=== PATIENT | female | born 1970 | race Caucasian/White ===

== ENCOUNTER 2017-03-20 13:38 | Observation (INO) | payer BC ==
[~2017-03-20] VITALS: Ht 165.1 cm; Wt 64.2 kg
[~2017-03-20 13:38] MED LIST: ASPI325T39 PO
[2017-03-20 13:41] VITALS: O2SAT 100
[2017-03-20] MEDS ORDERED: SODIUM CHLORIDE 0.9% 1000ML 1,000 ML IV STA (14:23)
[2017-03-20] MEDS ORDERED: PROCHLORPERAZINE 5 MG/ML 2 ML VIAL IV STA (14:23)
[2017-03-20] MEDS ORDERED: ACETAMINOPHEN 500 MG TAB PO STA (14:23)
[2017-03-20] MEDS ORDERED: DiphenhydrAMINE HCL 50 MG/ML VIAL IV STA (14:23)
[2017-03-20 14:39] LABS: BASO % 0.3 %; BASO ABS # 0.02 K/uL (0-0.2); COMPLETE YES; EOS % 0.8 %; IG% 0.2 %; LYMPH ABS # 1.54 K/uL (1.2-3.4); MEAN CELL VOLUME 92.4 fL (80-100); MEAN CORPUSCULAR HEMOGLOBIN 32.1 pg (25-34); MEAN CORPUSCULAR HGB CONC 34.8 g/dl (32-36); MEAN PLATELET VOLUME 10.5 fL (7.4-10.4); MONO % 11.7 %; PLATELET COUNT 206 K/uL (130-400); RED BLOOD COUNT 4.33 M/uL (4.2-5.4); WHITE BLOOD COUNT 6.43 K/uL (4.8-10.8)
[2017-03-20 14:46] LABS: BUN/CREATININE RATIO 10.3 (10-20); CALCIUM 9.1 mg/dl (8.5-10.1); CREATININE 0.78 mg/dl (0.60-1.20); POTASSIUM 3.7 mmol/L (3.5-5.1)
[2017-03-20 15:21] LABS: LYME DISEASE AB IGG NEG (NEG)
[2017-03-20 15:39] LABS: URINE APPEARANCE CLEAR (CLEAR); URINE BILIRUBIN NEG (NEG); URINE COLOR YELLOW; URINE NITRITE NEG (NEG); UROBILINOGEN NEG (NEG)
[2017-03-20 15:39] LABS: LYME DISEASE AB IGM EQUIVOCAL (NEG)
[2017-03-20 15:41] LABS: PROTHROMBIN TIME (PATIENT) 10.2 SECONDS (9.0-12.0)
[2017-03-20 15:45] LABS: MANUAL MICROSCOPIC REQUIRED? NO; REVIEW REQ? NO
--- NOTE | 2017-03-20 16:58 | DIAGNOSTIC IMAGING REPORT ---
ANGIOGRAPHY HEAD COMBO CLINICAL HISTORY: Blurred vision and headache status post cardiac catheterization. COMPARISON STUDY: No previous studies for comparison. TECHNIQUE: Unenhanced and arterial phase imaging of the head was performed. Injection of 116 cc Optiray 320 IV was uneventful. Sagittal and coronal reconstructions were viewed as well as maximal intensity projections on an independent 3-D workstation. FINDINGS: No acute intracranial hemorrhage, midline shift or mass effect is present. Ventricular system is normal. Fullness at the level of the foramen magnum is chronic. There are no extra-axial collections. -white differentiation is maintained. There is minimal left basal ganglia calcification. There are no findings to suggest acute dural sinus thrombosis or acute territorial infarct. There no significant calvarial abnormalities. Visualized portions of the sinuses and mastoid air cells are clear. The bilateral M1, M2, A1 and A2 segments are patent. There is no intracranial dissection. Posterior circulation is also intact. There is persistence of the left posterior cerebral artery. There is an anterior communicating artery. There is mild vascular calcification of the bilateral cavernous carotids. IMPRESSION: 1. No acute intracranial findings. 2. Unremarkable CTA of the head. Electronically signed by: Guille Garcia M.D. 03/20/2017 4:57 PM Dictated Date/Time: 03/20/2017 4:50 PM
--- NOTE | 2017-03-20 17:06 | DIAGNOSTIC IMAGING REPORT ---
CT ANGIOGRAPHY OF THE NECK WITH CONTRAST CLINICAL HISTORY: Right-sided headache and blurred vision status post PDA closure. COMPARISON STUDY: No previous studies for comparison. Technique: CT angiography of the carotid and vertebral arteries was obtained using Automile 320 IV and 3D reconstruction on an independent workstation. NASCET criteria was utilized. A dose lowering technique was utilized adhering to the principles of ALARA. Findings: The bilateral common carotid, internal carotid and vertebral arteries are patent. There is no significant stenosis. There is no dissection within these vessels. No cervical lymphadenopathy is identified. There is no hematoma within the neck. Epiglottis is normal. Parotid and submandibular glands are normal. Thyroid is unremarkable by CT. The chest will be reported separately. No suspicious skeletal lesions are identified. IMPRESSION: Unremarkable CTA of the neck. No dissection or stenosis. Electronically signed by: Guille Garcia M.D. 03/20/2017 5:05 PM Dictated Date/Time: 03/20/2017 5:01 PM
--- NOTE | 2017-03-20 17:15 | DIAGNOSTIC IMAGING REPORT ---
CHEST COMBO ANGIOGRAPHY CLINICAL HISTORY: Right-sided headache and left-sided visual disturbance status post recent PDA closure. COMPARISON STUDY: CTA of the chest July 29, 2016. TECHNIQUE: Unenhanced and arterial phase imaging of the chest was performed. Injection of 116 cc Optiray 320 IV was uneventful. Sagittal and coronal reconstructions were viewed as well as maximal intensity projections on an independent 3-D workstation. FINDINGS: The caliber of the thoracic aorta is normal. There is no evidence of intramural hematoma or dissection within the thoracic aorta. There are expected findings following PDA closure. There is no pericardial effusion. There are no enlarged thoracic lymph nodes. Central airways are patent. No consolidation is present. There is no pneumomediastinum. No pneumothorax or pleural effusion is identified. No pulmonary emboli are identified. Bony thorax and upper abdomen are unremarkable. A small segment 8 hepatic cyst is unchanged. IMPRESSION: 1. Unremarkable CTA of the chest following PDA closure. No thoracic aortic dissection. 2. No acute intrathoracic findings. Electronically signed by: Guille Garcia M.D. 03/20/2017 5:14 PM Dictated Date/Time: 03/20/2017 5:06 PM
[2017-03-20] MEDS ORDERED: ASPIRIN 81 MG CHEW PO STA (17:30)
--- NOTE | 2017-03-20 17:36 | EMERGENCY ROOM VISIT NOTE ---
History Report prepared by Ludwin: Adelina Joyner Under the Supervision of: Dr. Baljeet Tobar M.D. First contact with patient: 14:03 Chief Complaint: NEURO SYMPTOMS Stated Complaint: S/P CARDIAC CATH, BLURRY VISION, WEAK, TIRED Nursing Triage Summary: Pt reports visual changes that lasted approx 20 min this AM. Pt reports visual changes have resolved. Now just feels "cloudy in my head". Pt recently underwent cardiac cath with PAD closure. Pt also reports R sided headache. Pt reports headache was initially above R eye and has now moved to the back of R head. Pt reports she had similar symptoms (without headache) last evening that lasted approx 5 min. History of Present Illness The patient is a 46 year old white female with a past medical history of cardiac catheterization, PDA closure who presents to the ED with a cc of intermittent vision changes beginning 1929 last night. Positive headache, fatigue. Negative urinary symptoms, numbness, tingling, weakness, neck pain, SOB , cough, congestion. No recent falls. No blood thinners. No tobacco, drug use. Source of History: patient Onset: 1929 last night Position: other (global) Quality: other (blurry vision) Timing: intermittent Associated Symptoms: + headache, + fatigue, No cough, No neck pain, No chest pain, No SOB, No urinary symptoms, No weakness, No numbness Note: Pt denies tingling, congestion. Review of Systems See HPI for pertinent positives and negatives. A total of ten systems were reviewed and were otherwise negative. Past Medical & Surgical Medical Problems: (1) MTHFR mutation (2) No Known Active Medical Problems Family History No pertinent family history stated. Social History Smoking Status: Never Smoker Marital Status: Housing Status: lives with family Occupation Status: unemployed Current/Historical Medications No Active Prescriptions or Reported Meds Allergies Coded Allergies: Neomycin (Unverified Allergy, Severe, RED RASH, 03/20/17) Penicillins (Unverified Allergy, Severe, CHILDHOOD, 03/20/17) Amoxicillin (Unverified Allergy, Unknown, CHILD REACTION, 07/29/16) Doxycycline (Unverified Allergy, Unknown, HIVES, 07/29/16) Physical Exam Vital Signs Date Time Temp Pulse Resp B/P (MAP) Pulse Ox O2 Delivery O2 Flow Rate FiO2 03/20/17 18:01 61 03/20/17 17:33 58 15 03/20/17 17:32 110/61 03/20/17 16:03 52 14 03/20/17 15:58 101/61 03/20/17 15:53 54 13 03/20/17 15:38 51 14 03/20/17 15:23 59 14 03/20/17 15:13 61 20 109/76 03/20/17 15:12 109/76 03/20/17 14:38 64 17 03/20/17 14:30 100 Room Air 03/20/17 14:23 67 18 03/20/17 14:13 74 03/20/17 13:41 36.7 78 18 136/68 100 Room Air Physical Exam GENERAL: Tearful, anxious, awake, alert, well-appearing, NAD HENT: Normocephalic, atraumatic. EYES: Normal conjunctiva. Sclera non-icteric. EOM intact, PERRL, no visual field deficit, 20/20 on the left, 20/10 on the right. NECK: Supple. No nuchal rigidity. FROM. RESPIRATORY: CTAB, no rhonchi, wheezing, crackles CARDIAC: RRR, no MRG ABDOMEN: Soft, NTND, BS+ MSK: No chest wall TTP, no LE edema, no calf pain NEURO: GCS 15, CN 2-12 intact, moves all 4s on command, good finger to nose, no pronator drift, 5/5 upper and lower extremity strength, however RLE limited 4/5 secondary to recent procedure. SKIN: No rash or jaundice noted. Medical Decision & Procedures ER Provider Diagnostic Interpretation: Radiology results as stated below per my review and radiologist interpretation: ANGIOGRAPHY HEAD COMBO CLINICAL HISTORY: Blurred vision and headache status post cardiac catheterization. COMPARISON STUDY: No previous studies for comparison. TECHNIQUE: Unenhanced and arterial phase imaging of the head was performed. Injection of 116 cc Optiray 320 IV was uneventful. Sagittal and coronal reconstructions were viewed as well as maximal intensity projections on an independent 3-D workstation. FINDINGS: No acute intracranial hemorrhage, midline shift or mass effect is present. Ventricular system is normal. Fullness at the level of the foramen magnum is chronic. There are no extra-axial collections. -white differentiation is maintained. There is minimal left basal ganglia calcification. There are no findings to suggest acute dural sinus thrombosis or acute territorial infarct. There no significant calvarial abnormalities. Visualized portions of the sinuses and mastoid air cells are clear. The bilateral M1, M2, A1 and A2 segments are patent. There is no intracranial dissection. Posterior circulation is also intact. There is persistence of the left posterior cerebral artery. There is an anterior communicating artery. There is mild vascular calcification of the bilateral cavernous carotids. IMPRESSION: 1. No acute intracranial findings. 2. Unremarkable CTA of the head. Electronically signed by: Guille Garcia M.D. 03/20/2017 4:57 PM Dictated Date/Time: 03/20/2017 4:[address] ANGIOGRAPHY OF THE NECK WITH CONTRAST CLINICAL HISTORY: Right-sided headache and blurred vision status post PDA closure. COMPARISON STUDY: No previous studies for comparison. Technique: CT angiography of the carotid and vertebral arteries was obtained using Optiray 320 IV and 3D reconstruction on an independent workstation. NASCET criteria was utilized. A dose lowering technique was utilized adhering to the principles of ALARA. Findings: The bilateral common carotid, internal carotid and vertebral arteries are patent. There is no significant stenosis. There is no dissection within these vessels. No cervical lymphadenopathy is identified. There is no hematoma within the neck. Epiglottis is normal. Parotid and submandibular glands are normal. Thyroid is unremarkable by CT. The chest will be reported separately. No suspicious skeletal lesions are identified. IMPRESSION: Unremarkable CTA of the neck. No dissection or stenosis. Electronically signed by: Guille Garcia M.D. 03/20/2017 5:05 PM Dictated Date/Time: 03/20/2017 5:01 PM CHEST COMBO ANGIOGRAPHY CLINICAL HISTORY: Right-sided headache and left-sided visual disturbance status post recent PDA closure. COMPARISON STUDY: CTA of the chest July 29, 2016. TECHNIQUE: Unenhanced and arterial phase imaging of the chest was performed. Injection of 116 cc Optiray 320 IV was uneventful. Sagittal and coronal reconstructions were viewed as well as maximal intensity projections on an independent 3-D workstation. FINDINGS: The caliber of the thoracic aorta is normal. There is no evidence of intramural hematoma or dissection within the thoracic aorta. There are expected findings following PDA closure. There is no pericardial effusion. There are no enlarged thoracic lymph nodes. Central airways are patent. No consolidation is present. There is no pneumomediastinum. No pneumothorax or pleural effusion is identified. No pulmonary emboli are identified. Bony thorax and upper abdomen are unremarkable. A small segment 8 hepatic cyst is unchanged. IMPRESSION: 1. Unremarkable CTA of the chest following PDA closure. No thoracic aortic dissection. 2. No acute intrathoracic findings. Electronically signed by: Guille Garcia M.D. 03/20/2017 5:14 PM Dictated Date/Time: 03/20/2017 5:06 PM Laboratory Results 03/20/17 14:13 Red Blood Count 4.33, Mean Corpuscular Volume 92.4, Mean Corpuscular Hemoglobin 32.1, Mean Corpuscular Hemoglobin Concent 34.8, Mean Platelet Volume 10.5, Neutrophils (%) (Auto) 63.0, Lymphocytes (%) (Auto) 24.0, Monocytes (%) (Auto) 11.7, Eosinophils (%) (Auto) 0.8, Basophils (%) (Auto) 0.3, Neutrophils # (Auto ) 4.06, Lymphocytes # (Auto) 1.54, Monocytes # (Auto) 0.75, Eosinophils # (Auto ) 0.05, Basophils # (Auto) 0.02 03/20/17 14:13 Test 03/20/17 14:13 03/20/17 14:54 03/20/17 15:04 White Blood Count 6.43 K/uL (4.8-10.8) Red Blood Count 4.33 M/uL (4.2-5.4) Hemoglobin 13.9 g/dL (12.0-16.0) Hematocrit 40.0 % (37-47) Mean Corpuscular Volume 92.4 fL (80-100) Mean Corpuscular Hemoglobin 32.1 pg (25-34) Mean Corpuscular Hemoglobin Concent 34.8 g/dl (32-36) Platelet Count 206 K/uL (130-400) Mean Platelet Volume 10.5 fL (7.4-10.4) Neutrophils (%) (Auto) 63.0 % Lymphocytes (%) (Auto) 24.0 % Monocytes (%) (Auto) 11.7 % Eosinophils (%) (Auto) 0.8 % Basophils (%) (Auto) 0.3 % Neutrophils # (Auto) 4.06 K/uL (1.4-6.5) Lymphocytes # (Auto) 1.54 K/uL (1.2-3.4) Monocytes # (Auto) 0.75 K/uL (0.11-0.59) Eosinophils # (Auto) 0.05 K/uL (0-0.5) Basophils # (Auto) 0.02 K/uL (0-0.2) RDW Standard Deviation 43.9 fL (36.4-46.3) RDW Coefficient of Variation 12.8 % (11.5-14.5) Immature Granulocyte % (Auto) 0.2 % Immature Granulocyte # (Auto) 0.01 K/uL (0.00-0.02) Anion Gap 6.0 mmol/L (3-11) Est Creatinine Clear Calc Drug Dose 85.2 ml/min Estimated GFR () 106.4 Estimated GFR (Non- 91.8 BUN/Creatinine Ratio 10.3 (10-20) Calcium Level 9.1 mg/dl (8.5-10.1) Lyme Disease IgG Antibody NEG (NEG) Urine Color YELLOW Urine Appearance CLEAR (CLEAR) Urine pH 7.0 (4.5-7.5) Urine Specific [place] 1.010 (1.000-1.030) Urine Protein NEG (NEG) Urine Glucose (UA) NEG (NEG) Urine Ketones NEG (NEG) Urine Occult Blood NEG (NEG) Urine Nitrite NEG (NEG) Urine Bilirubin NEG (NEG) Urine Urobilinogen NEG (NEG) Urine Leukocyte Esterase NEG (NEG) Urine Test NEG (NEG) Prothrombin Time 10.2 SECONDS (9.0-12.0) Prothromb Time International Ratio 1.0 (0.9-1.1) Activated Partial Thromboplast Time 25.8 SECONDS (21.0-31.0) Partial Thromboplastin Ratio 1.0 Laboratory results reviewed by me Medications Administered Medications (Trade) Dose Ordered Sig/José Route Start Time Stop Time Status Last Admin Dose Admin Prochlorperazine Edisylate (Compazine Inj) 10 mg NOW STAT IV 03/20/17 14:23 03/20/17 14:28 DC 03/20/17 15:11 10 MG Sodium Chloride 1,000 ml @ 999 mls/hr Q1H1M STAT IV 03/20/17 14:23 03/20/17 15:23 DC 03/20/17 15:11 999 MLS/HR Acetaminophen (Tylenol Tab) 1,000 mg NOW STAT PO 03/20/17 14:23 03/20/17 14:28 DC 03/20/17 15:11 1,000 MG Diphenhydramine HCl (Benadryl Inj) 25 mg NOW STAT IV 03/20/17 14:23 03/20/17 14:28 DC 03/20/17 15:11 25 MG Aspirin (Aspirin Chew) 324 mg NOW STAT PO 03/20/17 17:30 03/20/17 17:31 DC 03/20/17 17:40 324 MG ECG Indication: other (neuro symptoms) Rate (beats per minute): 62 Rhythm: normal sinus Findings: other (normal ME, QRS, QTc intervals, no STS changes or TWI, mild T wave flattening isolated lead 3) ED Course 1409: The patient was evaluated in room C3. A complete history and physical exam was performed. 1428: Paged for the multi site leasing consultant technology strategist at [facility]. Pt refusing imaging until cleared by cardiology. 1446: I discussed the patient's case with Dr. Roldan, [facility]. She informed me that it is acceptable for the patient to have CT scans. 1700: I reevaluated the patient. Her headache has resolved and she has had no recurrence of symptoms. I discussed the lyme test results. 1721: Upon reexamination, the patient was resting comfortably. I discussed the test results and treatment plan with her. The patient will be evaluated for further management. 1724: I discussed the patient's case with Dr. Roque, [facility]. The patient will be evaluated for further treatment and disposition. Medical Decision The patient is a 46 year old white female with a past medical history of cardiac catheterization, PDA closure who presents to the ED with a cc of intermittent vision changes beginning 1930 last night. Triage Nursing notes reviewed. The patient's presentation and history were concerning for thrombotic event, complex migraine, anxiety, arrhythmia, coagulopathy. Patient was evaluated and workup started. Patient in EKG was normal sinus rhythm or atrial fibrillation or other arrhythmia noted. Patient's coags were normal. Patient was given fluids as well as medications. Patient's headache resolved and did not have any recurrence of her vision symptoms. 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 Patient did have CT A's of the head and neck and chest which were negative acute for any sort of dissection or clot that was able to be found. I spoke with the hospitalist who agreed that she would benefit from further management and a brief observation period. Patient was given full dose aspirin and accepted by the hospitalist service. Medication Reconcilliation Current Medication List: was personally reviewed by me Blood Pressure Screening Patient's blood pressure: Normal blood pressure Blood pressure disposition: Did not require urgent referral Consults Time Called: 1428 Consulting Physician: Dr. Roldan, [facility] Returned Call: [phone] I discussed the patient's case with her. She informed me that it is acceptable for the patient to have a CT scan. Additional Consults: Time Called: 1720 Consulted Physician: Dr. Roque [facility] hospitalist Returned Call: [phone] Additional Comments: Discussed the patient's case. The patient will be evaluated for further treatment and disposition. Impression Primary Impression: TIA (transient ischemic attack) Additional Impression: Headache Scribe Attestation The scribe's documentation has been prepared under my direction and personally reviewed by me in its entirety. I confirm that the note above accurately reflects all work, treatment, procedures, and medical decision making performed by me. Departure Information Dispostion Being Evaluated By Hospitalist Prescriptions No Active Prescriptions or Reported Meds Referrals Krystal Daugherty D.OJuan (PCP) Patient Instructions My [facility] Problem Qualifiers Primary Impression: TIA (transient ischemic attack) Transient cerebral ischemia type: unspecified Qualified Codes: G45.9 - Transient cerebral ischemic attack, unspecified Additional Impression: Headache Headache type: unspecified Headache chronicity pattern: acute headache Intractability: not intractable Qualified Codes: R51 - Headache
[2017-03-20] MEDS ORDERED: ACETAMINOPHEN 325 MG TAB PO PRN (18:30)
[2017-03-20] MEDS ORDERED: IV FLUIDS COMPLETED PRN (18:30)
[2017-03-20] MEDS ORDERED: ONDANSETRON INJ 2 MG/ML 2 ML VIAL IV PRN (18:30)
[2017-03-20] MEDS ORDERED: PHARMACIST DISCHARGE MED REC CONSULT PRN (18:30)
[2017-03-20 19:10] VITALS: BP 96/62; PULSE 63; TEMP 36.6; Ht 165.1 cm; Wt 64.2 kg
[2017-03-20] MEDS ORDERED: ATORVASTATIN 40 MG TAB PO ONE (19:30)
[2017-03-20] MEDS ORDERED: ENOXAPARIN 40 MG/0.4 ML SYR SC SCH (22:00)
--- NOTE | 2017-03-20 22:31 | History and Physical ---
History & Physical Date & Time of Service: Mar 20, 2017 at 18:33 Chief Complaint: S/P Cardiac Cath, Blurry Vision, Weak, Tired Primary Care Physician: Krystal Daugherty D.O. History of Present Illness Source: patient, spouse, clinic records, hospital records 46 yo F with TIA symptoms presents to the ER. Two days ago she underwent placement of a PDA closure device at [facility]. Since then she has experienced two episodes of visual changes in her L eye described as lightning bolts from L to R across her eye with subsequent headache following these episodes that occurred 24 hours apart. She then described a period of brief confusion today as her mother was handing her sneakers and she had to stop and figure out what she was doing. She couldn't put it together. She otherwise denies any difficulty ambulating, swallowing, articulating her words (except for that brief time). She denies any unilateral weakness but does describe some generalized weakness. She denies any numbness or tingling. Her headache was unilateral on the R frontal area and then moved posteriorly. It was relieved with medications in the ER. She is a non-smoker with no h/o CAD, stroke or other medical problems. 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 Of note, she was treated with Lovenox through her pregnancies which were successful. She denies any chest pain, shortness of breath, reports her chronic EUBANKS still present so far ( walking upstairs is a problem), current GARCIA or visual changes, lightheadedness, recent infections or cold symptoms, n/v, d/c or blood per rectum. She does have some bruising on her R upper thigh from the cardiac catheterization which is extensive but appears to be healing. Past Medical/Surgical History Medical Problems: (1) MTHFR mutation Family History FH: CAD (coronary artery disease) FATHER Mitral valve prolapse MOTHER Social History Smoking Status: Never Smoker Smokeless Tobacco Use: No Alcohol Use: none Drug Use: none Marital Status: Housing status: lives with family Occupational Status: unemployed Immunizations History of Influenza Vaccine: Yes Influenza Vaccine Date: May 25, 2016 History of Tetanus Vaccine?: Yes Tetanus Immunization Date: Aug 09, 2008 History of Pneumococcal: No History of Hepatitis B Vaccine: No Multi-Drug Resistant Organisms History of MDRO: No Allergies Coded Allergies: Neomycin (Unverified Allergy, Severe, RED RASH, 03/20/17) Penicillins (Unverified Allergy, Severe, CHILDHOOD, 03/20/17) Amoxicillin (Unverified Allergy, Unknown, CHILD REACTION, 07/29/16) Doxycycline (Unverified Allergy, Unknown, HIVES, 07/29/16) Home Medications No Active Prescriptions or Reported Meds Review of Systems At least ten systems reviewed and negative except as indicated in HPI. Physical Exam Vital Signs Date Time Temp Pulse Resp B/P (MAP) Pulse Ox O2 Delivery O2 Flow Rate FiO2 03/20/17 18:01 61 03/20/17 17:33 58 15 03/20/17 17:32 110/61 03/20/17 16:03 52 14 03/20/17 15:58 101/61 03/20/17 15:53 54 13 03/20/17 15:38 51 14 03/20/17 15:23 59 14 03/20/17 15:13 61 20 109/76 03/20/17 15:12 109/76 03/20/17 14:38 64 17 03/20/17 14:30 100 Room Air 03/20/17 14:23 67 18 03/20/17 14:13 74 03/20/17 13:41 36.7 78 18 136/68 100 Room Air GEN: WNWD, in no acute distress, alert and appropriate HEENT: NC/AT, PERRL, normal sclerae, MMM, pharynx non-acute, no LAD CARDIO: reg rate, S1/2 heard without m/g/r, no murmur with hand kitchen porter, no edema, 2+ peripheral pulses throughout, no JVD LUNGS: CTA bilaterally, no crackles, rales or wheezes, good diaphragmatic excursion ABD: soft, non-tender, non-distended, no rebound or guarding EXTREMITY: RP and DP palpable 2+ bilat, no LE swelling or edema, extremities are warm and well-perfused, R upper thigh with ecchymosis NEURO: CN 2-12 intact, sensation intact throughout, coordination intact (finger to nose, Evette, Romberg neg, tandem Romberg neg, heel to link neg) (reflexes) BR 2+ bilat, knee 2+ bilat MUSC: 5/5 strength throughout, no focal deficits SKIN: warm and dry and ecchymosis as noted above. Diagnostics Laboratory Results 03/20/17 14:13 Red Blood Count 4.33, Mean Corpuscular Volume 92.4, Mean Corpuscular Hemoglobin 32.1, Mean Corpuscular Hemoglobin Concent 34.8, Mean Platelet Volume 10.5, Neutrophils (%) (Auto) 63.0, Lymphocytes (%) (Auto) 24.0, Monocytes (%) (Auto) 11.7, Eosinophils (%) (Auto) 0.8, Basophils (%) (Auto) 0.3, Neutrophils # (Auto ) 4.06, Lymphocytes # (Auto) 1.54, Monocytes # (Auto) 0.75, Eosinophils # (Auto ) 0.05, Basophils # (Auto) 0.02 03/20/17 14:13 Test 03/20/17 14:13 03/20/17 14:54 03/20/17 15:04 03/20/17 19:30 White Blood Count 6.43 K/uL (4.8-10.8) Red Blood Count 4.33 M/uL (4.2-5.4) Hemoglobin 13.9 g/dL (12.0-16.0) Hematocrit 40.0 % (37-47) Mean Corpuscular Volume 92.4 fL (80-100) Mean Corpuscular Hemoglobin 32.1 pg (25-34) Mean Corpuscular Hemoglobin Concent 34.8 g/dl (32-36) Platelet Count 206 K/uL (130-400) Mean Platelet Volume 10.5 fL (7.4-10.4) Neutrophils (%) (Auto) 63.0 % Lymphocytes (%) (Auto) 24.0 % Monocytes (%) (Auto) 11.7 % Eosinophils (%) (Auto) 0.8 % Basophils (%) (Auto) 0.3 % Neutrophils # (Auto) 4.06 K/uL (1.4-6.5) Lymphocytes # (Auto) 1.54 K/uL (1.2-3.4) Monocytes # (Auto) 0.75 K/uL (0.11-0.59) Eosinophils # (Auto) 0.05 K/uL (0-0.5) Basophils # (Auto) 0.02 K/uL (0-0.2) RDW Standard Deviation 43.9 fL (36.4-46.3) RDW Coefficient of Variation 12.8 % (11.5-14.5) Immature Granulocyte % (Auto) 0.2 % Immature Granulocyte # (Auto) 0.01 K/uL (0.00-0.02) Anion Gap 6.0 mmol/L (3-11) Est Creatinine Clear Calc Drug Dose 85.2 ml/min Estimated GFR () 106.4 Estimated GFR (Non- 91.8 BUN/Creatinine Ratio 10.3 (10-20) Calcium Level 9.1 mg/dl (8.5-10.1) Lyme Disease IgG Antibody NEG (NEG) Urine Color YELLOW Urine Appearance CLEAR (CLEAR) Urine pH 7.0 (4.5-7.5) Urine Specific Elwin 1.010 (1.000-1.030) Urine Protein NEG (NEG) Urine Glucose (UA) NEG (NEG) Urine Ketones NEG (NEG) Urine Occult Blood NEG (NEG) Urine Nitrite NEG (NEG) Urine Bilirubin NEG (NEG) Urine Urobilinogen NEG (NEG) Urine Leukocyte Esterase NEG (NEG) Urine Test NEG (NEG) Prothrombin Time 10.2 SECONDS (9.0-12.0) Prothromb Time International Ratio 1.0 (0.9-1.1) Activated Partial Thromboplast Time 25.8 SECONDS (21.0-31.0) Partial Thromboplastin Ratio 1.0 Total Creatine Kinase 45 U/L (26-192) Creatine Kinase MB < 0.5 ng/ml (0.5-3.6) Creatine Kinase MB Ratio (0-3.0) Troponin I < 0.015 ng/ml (0-0.045) Results Past 24 Hours Test 03/20/17 14:13 03/20/17 14:54 03/20/17 15:04 03/20/17 18:22 Range/Units White Blood Count 6.43 4.8-10.8 K/uL Red Blood Count 4.33 4.2-5.4 M/uL Hemoglobin 13.9 12.0-16.0 g/dL Hematocrit 40.0 37-47 % Mean Corpuscular Volume 92.4 80-100 fL Mean Corpuscular Hemoglobin 32.1 25-34 pg Mean Corpuscular Hemoglobin Concent 34.8 32-36 g/dl Platelet Count 206 130-400 K/uL Mean Platelet Volume 10.5 7.4-10.4 fL Neutrophils (%) (Auto) 63.0 % Lymphocytes (%) (Auto) 24.0 % Monocytes (%) (Auto) 11.7 % Eosinophils (%) (Auto) 0.8 % Basophils (%) (Auto) 0.3 % Neutrophils # (Auto) 4.06 1.4-6.5 K/uL Lymphocytes # (Auto) 1.54 1.2-3.4 K/uL Monocytes # (Auto) 0.75 0.11-0.59 K/uL Eosinophils # (Auto) 0.05 0-0.5 K/uL Basophils # (Auto) 0.02 0-0.2 K/uL RDW Standard Deviation 43.9 36.4-46.3 fL RDW Coefficient of Variation 12.8 11.5-14.5 % Immature Granulocyte % (Auto) 0.2 % Immature Granulocyte # (Auto) 0.01 0.00-0.02 K/uL Sodium Level 140 136-145 mmol/L Potassium Level 3.7 3.5-5.1 mmol/L Chloride Level 107 98-107 mmol/L Carbon Dioxide Level 27 21-32 mmol/L Anion Gap 6.0 3-11 mmol/L Blood Urea Nitrogen 8 7-18 mg/dl Creatinine 0.78 0.60-1.20 mg/dl Est Creatinine Clear Calc Drug Dose 85.2 ml/min Estimated GFR () 106.4 Estimated GFR (Non- 91.8 BUN/Creatinine Ratio 10.3 10-20 Random Glucose 111 70-99 mg/dl Calcium Level 9.1 8.5-10.1 mg/dl Lyme Disease IgG Antibody NEG NEG Lyme Disease IgM Antibody EQUIVOCAL NEG Urine Color YELLOW Urine Appearance CLEAR CLEAR Urine pH 7.0 4.5-7.5 Urine Specific Elwin 1.010 1.000-1.030 Urine Protein NEG NEG Urine Glucose (UA) NEG NEG Urine Ketones NEG NEG Urine Occult Blood NEG NEG Urine Nitrite NEG NEG Urine Bilirubin NEG NEG Urine Urobilinogen NEG NEG Urine Leukocyte Esterase NEG NEG Urine Test NEG NEG Prothrombin Time 10.2 9.0-12.0 SECONDS Prothromb Time International Ratio 1.0 0.9-1.1 Activated Partial Thromboplast Time 25.8 21.0-31.0 SECONDS Partial Thromboplastin Ratio 1.0 Creatine Kinase MB Ratio 0-3.[address] ANGIOGRAPHY OF THE NECK WITH CONTRAST CLINICAL HISTORY: Right-sided headache and blurred vision status post PDA closure. COMPARISON STUDY: No previous studies for comparison. Technique: CT angiography of the carotid and vertebral arteries was obtained using Optiray 320 IV and 3D reconstruction on an independent workstation. NASCET criteria was utilized. A dose lowering technique was utilized adhering to the principles of ALARA. Findings: The bilateral common carotid, internal carotid and vertebral arteries are patent. There is no significant stenosis. There is no dissection within these vessels. No cervical lymphadenopathy is identified. There is no hematoma within the neck. Epiglottis is normal. Parotid and submandibular glands are normal. Thyroid is unremarkable by CT. The chest will be reported separately. No suspicious skeletal lesions are identified. IMPRESSION: Unremarkable CTA of the neck. No dissection or stenosis. CHEST COMBO ANGIOGRAPHY CLINICAL HISTORY: Right-sided headache and left-sided visual disturbance status post recent PDA closure. COMPARISON STUDY: CTA of the chest July 29, 2016. TECHNIQUE: Unenhanced and arterial phase imaging of the chest was performed. Injection of 116 cc Optiray 320 IV was uneventful. Sagittal and coronal reconstructions were viewed as well as maximal intensity projections on an independent 3-D workstation. FINDINGS: The caliber of the thoracic aorta is normal. There is no evidence of intramural hematoma or dissection within the thoracic aorta. There are expected findings following PDA closure. There is no pericardial effusion. There are no enlarged thoracic lymph nodes. Central airways are patent. No consolidation is present. There is no pneumomediastinum. No pneumothorax or pleural effusion is identified. No pulmonary emboli are identified. Bony thorax and upper abdomen are unremarkable. A small segment 8 hepatic cyst is unchanged. IMPRESSION: 1. Unremarkable CTA of the chest following PDA closure. No thoracic aortic dissection. 2. No acute intrathoracic findings. ANGIOGRAPHY HEAD COMBO CLINICAL HISTORY: Blurred vision and headache status post cardiac catheterization. COMPARISON STUDY: No previous studies for comparison. TECHNIQUE: Unenhanced and arterial phase imaging of the head was performed. Injection of 116 cc Optiray 320 IV was uneventful. Sagittal and coronal reconstructions were viewed as well as maximal intensity projections on an independent 3-D workstation. FINDINGS: No acute intracranial hemorrhage, midline shift or mass effect is present. Ventricular system is normal. Fullness at the level of the foramen magnum is chronic. There are no extra-axial collections. -white differentiation is maintained. There is minimal left basal ganglia calcification. There are no findings to suggest acute dural sinus thrombosis or acute territorial infarct. There no significant calvarial abnormalities. Visualized portions of the sinuses and mastoid air cells are clear. The bilateral M1, M2, A1 and A2 segments are patent. There is no intracranial dissection. Posterior circulation is also intact. There is persistence of the left posterior cerebral artery. There is an anterior communicating artery. There is mild vascular calcification of the bilateral cavernous carotids. IMPRESSION: 1. No acute intracranial findings. 2. Unremarkable CTA of the head. EKG SR 62. Impression Assessment and Plan 46 yo F s/p PDA closure 2 days ago in setting of known MTHFR mutation with h/o spontaneous abortions, presents with TIA symptoms twice in the last two days. 1. TIA-ABCD score is 1 making stroke in the next 48 hours low risk, however, observation on telemetry and repeat TTE thought prudent in setting of other comorbidities. Neuro consult. Pt unable to get MRI as closure device is MRI incompatible. No neuro deficits on exam and CTA head and neck is unremarkable. 2. PDA s/p closure 2 days ago-denies worsening of SOB with exertion and denies chest pain. Some eccymosis around the cath site that is healing. Ordered records from [facility] and will obtain post-op echo to monitor changes. Cardiology consulted. 3. MTHFR mutation Full Code DVT proph: Abel 40 Dispo-observation overnight and home in am. Keerthi Roque DO [facility] Hospitalist. Level of Care Telemetry Resuscitation Status FULL RESUSCITATION VTE Prophylaxis VTE Risk Assessment Done? Y/N: Yes Risk Level: Moderate Given or contraindicated: Enoxaparin (Lovenox)SQ
[2017-03-20 23:05] VITALS: BP 92/61; PULSE 62; TEMP 37; O2SAT 95
[2017-03-21 04:00] VITALS: BP 95/61; PULSE 58; TEMP 36.8; O2SAT 97
[2017-03-21 06:23] LABS: BASO % 0.5 %; BASO ABS # 0.03 K/uL (0-0.2); COMPLETE YES; EOS % 1.2 %; HEMATOCRIT 36.2 % (37-47); IG% 0.2 %; LYMPH % 34.4 %; LYMPH ABS # 1.95 K/uL (1.2-3.4); MEAN CELL VOLUME 91.9 fL (80-100); MEAN CORPUSCULAR HEMOGLOBIN 30.5 pg (25-34); MEAN CORPUSCULAR HGB CONC 33.1 g/dl (32-36); MEAN PLATELET VOLUME 9.7 fL (7.4-10.4); MONO % 11.1 %; NEUT % 52.6 %; PLATELET COUNT 183 K/uL (130-400); RED BLOOD COUNT 3.94 M/uL (4.2-5.4); WHITE BLOOD COUNT 5.67 K/uL (4.8-10.8)
[2017-03-21 06:53] LABS: BUN/CREATININE RATIO 10.9 (10-20); CALCIUM 8.5 mg/dl (8.5-10.1); CREATININE 0.64 mg/dl (0.60-1.20); POTASSIUM 3.8 mmol/L (3.5-5.1)
[2017-03-21 06:57] LABS: CHOLESTEROL/HDL RATIO 2.4
[2017-03-21 07:52] VITALS: BP 99/62; PULSE 60; TEMP 36.6; O2SAT 97
[2017-03-21] MEDS ORDERED: ASPIRIN 81 MG ECTAB PO SCH (09:00)
[2017-03-21 11:14] VITALS: BP 104/68; PULSE 65; TEMP 36.6; O2SAT 100
--- NOTE | 2017-03-21 12:30 | Cardiology Consultation ---
Cardiology Consultation Date of Consultation: Mar 21, 2017 History of Present Illness Erasto Salas is a 46 year old female seen in cardiology consultation per the request of Dr Roque for complaint of transient visual changes and headache. The patient's cardiac history dates back to July, when she had complained of shortness of breath. A d-dimer was ordered and was found to be mildly elevated. This led to a CT angiogram performed at [facility] on 07/29/16. CT scan showed no evidence of bony embolism but did reveal findings suggestive of a communication between the descending thoracic aorta and the pulmonary artery consistent with a patent ductus arteriosus. She was referred by her PCP to cardiology had been seen by the undersigned Johnny Mcallister as a shared visit on 08/06/17 and an echocardiogram at the same time. The echocardiogram confirmed the presence of the PDA. She had on to have a consultation with pediatric interventional cardiology at [facility] did discuss percutaneous PDA closure, and ultimately I referred her for another opinion with Dr Levy Mena of adult congenital heart disease at the [facility]. The patient went on to have this appointment in December 2016. The records from that visit are not available at present, but she underwent an evaluation that included several tests there including a 10 day Zio lunchroom mother that apparently revealed no arrhythmia per her recollection. She returned to [place] a few days ago and had preprocedure testing on Wednesday03/17/17, and on 03/18/17 she underwent cardiac catheterization with percutaneous pin ductus arteriosus closure utilizing an Amplatzer occluder device performed by Dr Jolly Esposito. The procedure was performed via the right femoral artery. She recalls being told that the patient ductus arteriosus was larger than they had anticipated based on her pre-procedure testing, and that the procedure had gone very well. The patient did well in the hospital and was discharged the next day on Wednesday03/18/17. After discharge she was driven home by her family and felt well. She notes that on Wednesday evening at about 8 PM after watching her Ipad all day she was watching her eye pad and had 10 minutes of a transient visual disturbance limited to her left eye that was characterized as bright lights. This resolved on its own. She called the nursing hotline for [facility] and she was advised to seek emergency room care if the event was to happen again. On Wednesday she felt well during the day. She was once again watching her Ipad and had recurrent sensation of bright lights in her left eye but this lasted longer approximately 25 minutes. When her symptoms did not improve immediately she started to make her way to the local emergency room. She is noted that on arrival her visual disturbances had completely subsided. She did however have a residual headache that started after the visual disturbance ceased. She notes that she does not routinely get headaches. She notes no other symptoms. She had been counseled that she was not a candidate for having an MRI until the device had been in place for [address] without contrast as well as CT angiography of her cerebral circulation had been performed yesterday without any acute findings. Telemetry overnight last night and today reveals stable sinus rhythm. She underwent an echocardiogram that was normal, and the previously noted flow from the aorta to the pulmonary artery indicative of a PDA is no longer present. The CT of the chest that she had on admission confirmed proper location of the Amplatzer device. The patient feels completely well now. She has been seen by neurology , from neurology perspective is felt that this may have been a transient migraine event. Low-dose aspirin is recommended as well as hypercoagulable blood workup. Past Medical/Surgical History Problem List: Medical Problems: (1) MTHFR mutation (2) No Known Active Medical Problems History Past Medical History: 1. 3 past miscarriages 2. [place] evaluation for her [place]riages 3. She recalls receiving aspirin and Lovenox leading up to her 4. Patent ductus arteriosus Past Surgical History: 1. D&C on one occasion 2. Adenoidectomy as a child 3. Percutaneous PDA closure, Amplatzer device, 03/18/17, [facility] Social History: Lifelong nonsmoker She is and her accompanies her at the bedside Family History: Mother is alive with history of mitral valve prolapse Father's life in his mid 70s and had coronary artery bypass grafting at the age of 70. She has 2 sisters one with diabetes and the other one with thyroid disease Review Of Systems See above for pertinent positives & negatives. A total of 10 systems reviewed and were otherwise negative. Allergies Coded Allergies: Neomycin (Unverified Allergy, Severe, RED RASH, 03/20/17) Penicillins (Unverified Allergy, Severe, CHILDHOOD, 03/20/17) Amoxicillin (Unverified Allergy, Unknown, CHILD REACTION, 07/29/16) Doxycycline (Unverified Allergy, Unknown, HIVES, 07/29/16) Medications Reported Home Medications Medications Dose Route/Sig Max Daily Dose Days Date Category No Active Prescriptions or Reported Medications Rx Physical Exam Vital Signs (Last 8hrs): Last 8 Hrs Date Time Temp Pulse Resp B/P (MAP) Pulse Ox O2 Delivery O2 Flow Rate FiO2 03/21/17 11:14 36.6 65 18 104/68 (80) 100 Room Air 03/21/17 07:52 36.6 60 18 99/62 (74) 97 Room Air 03/21/17 07:45 Room Air General Appearance: Alert and Oriented x3. NAD. Head: Normocephalic Atraumatic. Eyes: PERRLA, EOMI, conjunctiva and sclera clear Neck: Supple. No carotid bruits noted. No JVD. No HJD. Respiratory: Breath sounds clear to auscultation bilaterally. No w/r/r. Cardiovascular: Reg rate and rhythm. S1 and S2 noted. No murmurs, rubs, gallops. PMI non displace. Abdomen: Normal bowel sounds, soft nontender. no abdominal bruits. Extremities: No edema, no clubbing or cyanosis. distal pulses 2/4 bilaterally. Neuro: No focal deficits. Psychiatric: Normal affect. Data Last Resulted 03/21/17 06:02 Red Blood Count 3.94, Mean Corpuscular Volume 91.9, Mean Corpuscular Hemoglobin 30.5, Mean Corpuscular Hemoglobin Concent 33.1, Mean Platelet Volume 9.7, Neutrophils (%) (Auto) 52.6, Lymphocytes (%) (Auto) 34.4, Monocytes (%) (Auto) 11.1, Eosinophils (%) (Auto) 1.2, Basophils (%) (Auto) 0.5, Neutrophils # (Auto ) 2.98, Lymphocytes # (Auto) 1.95, Monocytes # (Auto) 0.63, Eosinophils # (Auto ) 0.07, Basophils # (Auto) 0.03 Last Resulted 03/21/17 06:02 Past 24 Hours Test 03/20/17 15:04 03/20/17 19:30 03/21/17 00:20 Range/Units Prothromb Time International Ratio 1.0 0.9-1.1 Prothrombin Time 10.2 9.0-12.0 SECONDS Creatine Kinase MB < 0.5 L < 0.5 L 0.5-3.6 ng/ml Creatine Kinase MB Ratio 0-3.0 Total Creatine Kinase 45 43 26-192 U/L Troponin I < 0.015 < 0.015 0-0.045 ng/ml EKG performed on admission again today reveals normal sinus rhythm in the 62 bpm range, no ST segments and no arrhythmias. Assessment & Plan Impression: 46-year-old female 1. Transient left eye visual disturbances followed by headache in patient who is status post recent percutaneous pin ductus arteriosus closure with an Amplatzer device 2. History of MTHFR mutation Plan: Typically a cardioembolic cerebral vascular event related to cardiac catheterization would take place within minutes were the first few hours after the procedure, and this patient's symptoms were well over a day after her procedure. Unfortunately, we are unable to perform an MRI because of her newly placed device, but her CT evaluation was negative. She has no ongoing neurologic symptoms. Agree with the neurology opinion that this is likely a migraine variant. I agree with empiric treatment with low-dose aspirin for the time being pending further follow-up. I do not think it is necessary to proceed with workup for occult atrial fibrillation as a possible cause of cardiac embolic stroke as she did have a past 10 day Zio monitor performed in approximately December 2016 which per her recollection was normal. Pt is stable for discharge from my standpoint to her hypercoagulable workup is drawn as recommended by neurology. She should keep her follow-up as planned with [facility], and she is welcome to see me in follow-up if she would like to also see was somewhat close. A smear echocardiogram, her PDA shunt is resolved. She already has a follow-up scheduled with Dr Mena of adult congenital heart disease at [facility] as an outpatient. London Early DO
[2017-03-21] MEDS ORDERED: ASPEC81 PO (13:34)
--- NOTE | 2017-03-21 13:39 | Discharge Instructions ---
Discharge Instructions Date of Service Mar 21, 2017. Admission Reason for Admission: TIA Discharge Discharge Diagnosis / Problem: complicated migraine Discharge Goals Goal(s): Prevent Disease Progression Activity Recommendations Activity Limitations: per Instructions/Follow-up section . Instructions / Follow-Up Instructions / Follow-Up Please take a baby aspirin daily until follow-up with Dr. Catherine in the clinic as instructed. You have a follow-up appointment with Dr. Paramjit Lubin on 03/24 @ 10:45am for follow-up from this hospitalization as Dr. Daugherty is out of the office. Please bring all paperwork from discharge with you. It was a pleasure taking care of you! Call if you have any questions or problems. You can reach a [facility] hospitalist on duty at [facility] 24 hours a day by calling [phone]. Take care of yourself. Keerthi Roque DO [facility] Hospitalist Current Hospital Diet Patient's current hospital diet: Regular Diet Discharge Diet Recommended Diet: Regular Diet Procedures Procedures Performed: None. Pending Studies Studies pending at discharge: yes List of pending studies: Hypercoagulable workup. Laboratory Results Lipid Panel Test 03/21/17 06:02 Range/Units Triglycerides Level 81 0-150 mg/dl Cholesterol Level 141 0-200 mg/dl HDL Cholesterol 60 mg/dl Cholesterol/HDL Ratio 2.4 LDL Cholesterol, Calculated 65 mg/dl Medical Emergencies . Who to Call and When: Medical Emergencies: If at any time you feel your situation is an emergency, please call 911 immediately. . Non-Emergent Contact Non-Emergency issues call your: Primary Care Provider . . "Provider Documentation" section prepared by Keerthi Roque. . VTE Core Measure Inpt VTE Proph given/why not?: Enoxaparin (Lovenox)SQ
[2017-03-21 15:05] VITALS: BP 104/68; PULSE 65; TEMP 36.6; O2SAT 100
--- NOTE | 2017-03-21 15:23 | NEUROLOGY CONSULTATION ---
DATE OF CONSULTATION: 03/21/2017 REASON FOR CONSULTATION: Possible transient ischemia. HISTORY OF PRESENT ILLNESS: Mrs. Salas is a 46-year-old right-handed female who underwent a placement of a PDA closure device at [facility] on Wednesday of this past week. The procedure was not associated with any complications and the patient returned home to [place] on Wednesday. She had 2 episodes of visual phenomenon which prompted her ER evaluation. She was seated, looking at an iPad, which was bright. She noted scintillating visual phenomenon which was somewhat crescentic in shape and lightning bolt like, only in the left eye and lasting about 10 minutes, not followed by a headache or accompanied by other neurologic symptoms. Following that, she called [facility] and they felt this was not to be typically expected after her closure. The following day she had a similar episode in the left eye, lasting 25 minutes and after its offset, she developed a right-sided pressure headache of moderate severity. No nausea, vomiting, light or sound sensitivity. She was very anxious during this period of time. Her mother handed her a shoe when she felt she briefly had to stop and figure out what she was doing, certainly lasted less than a minute. There was no difficulty with speech, language, unilateral weakness or numbness or tingling. She denies a history of prior migraine, although in December when she went to [facility] for evaluation, she was n.p.o. and did not drink her usual cup and a half of ice coffee per day and she had a modestly severe throbbing headache that was not accompanied by any neurologic symptoms. She has a sister who has migraines. 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 She was placed, according to the patient, on Lovenox during her because of MTHFR heterozygous state. She had no history of DVT or PE. In June 2016, she felt generally unwell and mildly short of breath. An echo was performed and showed a PDA. She was sent to [facility] for consultation and they elected a closure. There has been no evidence of a pulmonary embolism, any distal emboli. There has been no prior history of neurologic dysfunction. PAST MEDICAL HISTORY: As above. PAST SURGICAL HISTORY: PDA closure. SOCIAL HISTORY: Nonsmoker, nondrinker. FAMILY HISTORY: Father was in poor health, had bypass surgery at 63. Mother with mitral valve prolapse. Sister, migraine. No family history of early cerebrovascular disease. ALLERGIES: NEOMYCIN, PENICILLIN, AMOXICILLIN, DOXYCYCLINE. The patient had a CTA of the head and neck which was unremarkable. CT of the head was unremarkable. She was unable to have an MRI because of the recent placement and a CT of the chest and thorax was unremarkable. LABORATORY DATA: White count 6.4, H&H 13.9/40, platelet count 206. PT 10.2, PTT 25.8. Chemistry profile notable for random glucose of 111. Urinalysis negative. test negative. Lyme IgM equivocal, IgG negative. Western blot is pending. PHYSICAL EXAMINATION: VITAL SIGNS: 36.6, 65, 18, 104/68, 100%. GENERAL: The patient is awake and alert, normal speech and language, affect appropriate. Oriented. HEENT: There are no carotid bruits. HEART: No heart murmurs. Regular rate and rhythm. ABDOMEN: Soft, nontender. EXTREMITIES: No bruits are noted in the femoral region. There is an area of ecchymosis, probably 4 inches down from the thigh up to the gluteal region. Peripheral pulses are intact in the feet and in the radial. I do not see any evidence of peripheral emboli. There is no calf swelling or tenderness. NEUROLOGIC: Pupils are equal, round, reactive to light. Optic nerves appear unremarkable. There are normal feldman, motility, facial sensation, facial symmetry. Speech and language normal. Tongue midline. Motor 5/5. No drift. Normal rapid alternating movements. Symmetric reflexes. Downgoing toes. [id number]-[id number] and olcb-[id number] are normal. Gait is unremarkable. Sensation intact to light touch, temperature and vibration. IMPRESSION: Likely classic migraine. I think the difficulty with concentration was rather brief than occurred in the setting of significant and appropriate anxiety and suspect it is not an ischemic symptom. She may have had a vascular headache back in December when she had not been eating and not had her usual caffeine. I feel reassured that there were no other concerning features and that there was no evidence of dissection. The patient will have an echo. At this point, I would place her on aspirin 81 mg once a day, probably for a month. It may be prophylactic for migraine. Defer to Dr. Early, cardiology, whether he feels she needs any ongoing antiplatelet therapy related to her PDA closure. Hypercoagulable state workup is ordered. A Lyme study will not be back in the hospitalization. The patient should see me in followup post discharge. LEANN
--- NOTE | 2017-03-22 08:22 | ECHOCARDIOGRAM REPORT ---
*NOTICE TO RECEIVING DEMOCRAT AGENCY This information is strictly Confidential and protected under [place] law. [place] law prohibits you from making any further disclosure of this information unless further disclosure is expressly permitted by the written consent of the person to whom it pertains or is authorized by law. A general authorization for the release of medical or other information is not sufficient for this purpose. Hospital accepts no responsibility if the information is made available to any other person, INCLUDING THE PATIENT. Interpretation Summary * Name: LAURA WHEAT Study Date: 03/21/2017 06:31 AM BP: 95/61 mmHg * Patient Location: C.2T\S\S229\S\2 HR: 60 * : 1970 (M/d/yyyy) Gender: Female Height: 66 in * Age: 46 yrs Ethnicity: CA Weight: 141 lb * Ordering Physician: Keerthi Roque * Performed By: Laurel Burroughs * * Reason For Study: ALT. OF CONSCIOUSNESS, TIA, PDA CLOSURE 3 DAYS AGO * BSA: 1.7 m2 * -- Conclusions -- * The left ventricle is normal in size. * The left ventricular wall motion is normal. * The LV Ejection Fraction = 55-60%. * The right ventricle is normal in size and function. * The LV diastoic function is normal. * Doppler findings do not suggest pulmonary hypertension. * The interatrial septum is intact with no evidence for an atrial septal defect. * Injection of contrast documented no interatrial shunt with high quality images. * There is no evidence of residual flow status post percutaneous patent ductus arteriosus. Procedure Details * A complete two-dimensional transthoracic echocardiogram was performed (2D, M-mode, Doppler and color flow Doppler). * A saline contrast injection was performed to assess for cardiac shunting. * The injection was performed through an intravenous line in the left arm. * A total of 20 cc of agitated saline was given. Left Ventricle * The left ventricle is normal in size. * There is normal left ventricular wall thickness. * Ejection Fraction = 55-60%. * Left ventricular systolic function is normal. * The left ventricular wall motion is normal. Right Ventricle * The right ventricle is normal in size and function. * The right ventricular systolic function is normal as assessed by tricuspid annular plane systolic excursion (TAPSE) (normal >1.5 cm). Atria * The left atrial size is normal. * Right atrial size is normal. * The interatrial septum is intact with no evidence for an atrial septal defect. * Injection of contrast documented no interatrial shunt. Mitral Valve * The mitral valve is normal. * There is no mitral valve stenosis. * There is trace mitral regurgitation. Tricuspid Valve * The tricuspid valve is normal. * There is no tricuspid stenosis. * Significant tricuspid regurgitation is absent. * Doppler findings do not suggest pulmonary hypertension. Aortic Valve * The aortic valve is trileaflet. * Aortic stenosis is absent. * There is no significant aortic regurgitation. Pulmonic Valve * The pulmonary valve is not well seen, but the Doppler examination is normal without significant regurgitation or stenosis. Great Vessels * The aortic root and proximal ascending aorta are normal sized. Pericardium/Pleural * There is no pericardial effusion. Great Vessels * Normal inferior vena cava diameter and respiratory variation suggests normal central venous pressure. Left Ventricular Diastolic Function * The LV diastoic function is normal. MMode 2D Measurements and Calculations RVDd 2.3 cm IVSd 0.87 cm IVSs 1.2 cm LVIDd 5.6 cm LVIDs 3.8 cm LVPWd 0.49 cm LVPWs 1.3 cm IVS/LVPW 1.8 FS 32.8 % EDV(Teich) 153.0 ml ESV(Teich) 60.3 ml EF(Teich) 60.6 % EDV(cubed) 174.6 ml ESV(cubed) 53.1 ml EF(cubed) 69.6 % % IVS thick 31.8 % % LVPW thick 166.4 % LV mass(C)d 135.2 grams LV mass(C)dI 78.4 grams/m\S\2 LV mass(C)s 156.6 grams LV mass(C)sI 90.8 grams/m\S\2 SV(Teich) 92.6 ml SI(Teich) 53.7 ml/m\S\2 SV(cubed) 121.5 ml SI(cubed) 70.5 ml/m\S\2 ACS 1.5 cm LA dimension 3.7 cm asc Aorta Diam 3.0 cm LVOT diam 1.8 cm LVOT area 2.5 cm\S\2 LVAd ap4 32.9 cm\S\2 LVLd ap4 7.7 cm EDV(MOD-sp4) 117.1 ml EDV(sp4-el) 119.4 ml LVAs ap4 19.3 cm\S\2 LVLs ap4 6.3 cm ESV(MOD-sp4) 49.9 ml ESV(sp4-el) 50.5 ml EF(MOD-sp4) 57.4 % EF(sp4-el) 57.7 % LVAd ap2 30.9 cm\S\2 LVLd ap2 7.9 cm EDV(MOD-sp2) 100.1 ml EDV(sp2-el) 102.4 ml LVAs ap2 17.2 cm\S\2 LVLs ap2 6.1 cm ESV(MOD-sp2) 39.5 ml ESV(sp2-el) 41.2 ml EF(MOD-sp2) 60.5 % EF(sp2-el) 59.7 % LVLd %diff 2.5 % EDV(MOD-bp) 110.7 ml LVLs %diff -2.41 % ESV(MOD-bp) 44.4 ml EF(MOD-bp) 59.8 % SV(MOD-sp4) 67.2 ml SI(MOD-sp4) 39.0 ml/m\S\2 SV(MOD-sp2) 60.5 ml SI(MOD-sp2) 35.1 ml/m\S\2 SV(MOD-bp) 66.2 ml SI(MOD-bp) 38.4 ml/m\S\2 SV(sp4-el) 68.9 ml SI(sp4-el) 40.0 ml/m\S\2 SV(sp2-el) 61.1 ml SI(sp2-el) 35.5 ml/m\S\2 Doppler Measurements and Calculations MV E max manan 73.3 cm/sec MV A max manan 52.3 cm/sec MV E/A 1.4 MV dec time 0.34 sec Ao V2 max 143.5 cm/sec Ao max PG 8.2 mmHg Ao max PG (full) 4.0 mmHg JOE(V,A) 1.8 cm\S\2 JOE(V,D) 1.8 cm\S\2 LV V1 max PG 4.3 mmHg LV V1 max 103.5 cm/sec MR max manan 437.9 cm/sec MR max PG 76.7 mmHg PA V2 max 84.1 cm/sec PA max PG 2.8 mmHg TR max manan 207.2 cm/sec
[2017-03-26 08:59] LABS: 18KDIGG BAND NONREACTIVE (NONREACTIVE); 23KDIGG BAND REACTIVE (NONREACTIVE); 23KDIGM BAND REACTIVE (NONREACTIVE); 28KDIGG BAND NONREACTIVE (NONREACTIVE); 30KDIGG BAND NONREACTIVE (NONREACTIVE); 39KDIGG BAND NONREACTIVE (NONREACTIVE); 39KDIGM BAND NONREACTIVE (NONREACTIVE); 41KDIGG BAND REACTIVE (NONREACTIVE); 41KDIGM BAND NONREACTIVE (NONREACTIVE); 45KDIGG BAND NONREACTIVE (NONREACTIVE); 58KDIGG BAND NONREACTIVE (NONREACTIVE); 66KDIGG BAND NONREACTIVE (NONREACTIVE); 93KDIGG BAND NONREACTIVE (NONREACTIVE)
[2017-03-30 11:36] LABS: ANTITHROMBINIII ACTIVITY** 108 % activity (80-120); B2 GLYCOPROTEIN IGA <9 SAU (<=20); B2 GLYCOPROTEIN IGG <9 SGU (<=20); B2 GLYCOPROTEIN IGM <9 SMU (<=20); LUPUS ANTICOAGULANT** TC36573X Negative (Negative); PROTEIN C ACTIVITY** TC 1777X 86 % (70-180)
== END 2017-03-21 15:05 | disposition home or self-care (01) ==
LOC: C.EDB 13:40 → C.2T 18:22 → ENRESERV 18:35
PROVIDERS: ADMIT Hospitalist; ATTEND Hospitalist
DX: G43.109 Migraine with aura, not intractable, without status migrainosus (principal); E72.12 Methylenetetrahydrofolate reductase deficiency; Z82.49 Family history of ischemic heart disease and other diseases of the circulatory system